=== PATIENT | female | born 1945 | race Caucasian/White ===

== ENCOUNTER 2018-06-06 05:54 | Day surgery (SDC) | payer OTHER ==
[2018-06-06] MEDS ORDERED: MIDAZOLAM 2 MG/2 ML VIAL IVP PRN (07:20)
[2018-06-06] MEDS ORDERED: ALTEPLASE 2 MG VIAL IVP PRN (07:20)
[2018-06-06] MEDS ORDERED: ONDANSETRON 4 MG/2 ML VIAL IVP ONE (07:20)
[2018-06-06] MEDS ORDERED: ceFAZolin 2 GM/DEXTROSE 100 ML IV ONE (07:20)
[2018-06-06] MEDS ORDERED: HEPARIN 10,000 UNIT/10 ML MDV (1,000 UNIT/ML) IVP PRN (07:20)
[2018-06-06] MEDS ORDERED: FLUMAZENIL 0.5 MG/5 ML MDV IVP PRN (07:20)
[2018-06-06] MEDS ORDERED: fentaNYL 100 MCG/2 ML INJ IVP PRN (07:20)
[2018-06-06] MEDS ORDERED: NS 1,000 ML IV ONE (07:20)
[2018-06-06] MEDS ORDERED: NALOXONE HCL 0.4 MG/ML INJ IVP PRN (07:20)
[2018-06-06] MEDS ORDERED: SODIUM TETRADECYL SULFATE 3% 2 ML VIAL IV ONE (07:58)
[2018-06-06] MEDS ORDERED: LIDO/EPI 1% **for epidural** 30 ML SDV ONE (07:58)
[2018-06-06] MEDS ORDERED: POLIDOCANOL 0.5% 2 ML AMP IV ONE (08:40)
--- NOTE | 2018-06-06 08:45 | PDGENHP ---
History & Physical Chief Complaint: BILATERAL LE VARICOSE VEINS History of Present Illness: PAIN AND SWELLING Pertinent Past, Social, Family History: FORMER SMOKER. Relevant Physical Exam: ROPEY VARICOSE VEINS Cardiorespiratory Assessment: RRR, CTA
--- NOTE | 2018-06-06 08:46 | PDPROPOC ---
Sedation Plan of Care Sedation Plan of Care: vital signs stable, mental status noted, patient educated of risks, benefits, alternatives, patient can tolerate sedation ASA Classification: ASA 2 Planned drugs: fentanyl, midazolam Mallampati Score: Class 2 Mallampati Reference Image: Patient passed 3-3-2 rule?: Yes
[2018-06-06] MEDS ORDERED: ONDANSETRON DISINTEGRATING 4 MG TAB PO PRN (10:58)
[2018-06-06] MEDS ORDERED: IBUPROFEN 200 MG TAB PO ONE (10:58)
[2018-06-06] MEDS ORDERED: ONDANSETRON 4 MG/2 ML VIAL IVP PRN (10:58)
[2018-06-06] MEDS ORDERED: NS 1,000 ML IV SCH (11:00)
--- NOTE | 2018-06-06 11:03 | PDRADPN ---
Radiology Procedure Note Date of Procedure: 06/06/18 Radiologist: Paloma Shields Anesthesia: IV Sedation Pre-op Diagnosis: RLE VARICOSE VEINS Post-op Diagnosis: SAME Indication: PAIN AND SWELLING Procedure: PHLEBECTOMY, SCLEROTHERAPY, LASER ABLATION Inf/Abcess present in the surg proc area at time of surgery?: No
[2018-06-06 14:06] VITALS: BP 122/73
== END 2018-06-06 14:00 | disposition home or self-care, planned readmission (81) ==
LOC: FIMAGING 05:54
PROVIDERS: ATTEND Radiology Diagnostic Radiology
PROC: B54DZZA Ultrasonography of Bilateral Lower Extremity Veins, Guidance (ICD-10-PCS; principal; 2018-06-06 11:06)
PROC: 065P3ZZ Destruction of Right Saphenous Vein, Percutaneous Approach (ICD-10-PCS; principal; 2018-06-06 11:06)
PROC: 06DQ3ZZ Extraction of Left Saphenous Vein, Percutaneous Approach (ICD-10-PCS; principal; 2018-06-06 11:06)
PROC: 3E033TZ Introduction of Destructive Agent into Peripheral Vein, Percutaneous Approach (ICD-10-PCS; principal; 2018-06-06 11:06)
PROC: 06DP3ZZ Extraction of Right Saphenous Vein, Percutaneous Approach (ICD-10-PCS; principal; 2018-06-06 11:06)
PROC: 065Q3ZZ Destruction of Left Saphenous Vein, Percutaneous Approach (ICD-10-PCS; principal; 2018-06-06 11:06)
DX: I83.813 Varicose veins of bilateral lower extremities with pain (principal); I83.893 Varicose veins of bilateral lower extremities with other complications; Z87.891 Personal history of nicotine dependence
CPT/HCPCS: J0690; J2250; J2310; J3010

== ENCOUNTER 2018-06-07 07:09 | Day surgery (SDC) | payer OTHER ==
[2018-06-07] MEDS ORDERED: ceFAZolin 2 GM/DEXTROSE 100 ML IV ONE (07:52)
[2018-06-07] MEDS ORDERED: fentaNYL 100 MCG/2 ML INJ IVP PRN (07:52)
[2018-06-07] MEDS ORDERED: MIDAZOLAM 2 MG/2 ML VIAL IVP PRN (07:52)
[2018-06-07] MEDS ORDERED: NALOXONE HCL 0.4 MG/ML INJ IVP PRN (07:52)
[2018-06-07] MEDS ORDERED: NS 1,000 ML IV ONE (07:52)
[2018-06-07] MEDS ORDERED: FLUMAZENIL 0.5 MG/5 ML MDV IVP PRN (07:52)
[2018-06-07] MEDS ORDERED: ONDANSETRON 4 MG/2 ML VIAL IVP ONE (07:52)
[2018-06-07] MEDS ORDERED: SODIUM TETRADECYL SULFATE 3% 2 ML VIAL IV ONE (08:38)
[2018-06-07] MEDS ORDERED: LIDO/EPI 1% **for epidural** 30 ML SDV ONE (08:38)
[2018-06-07] MEDS ORDERED: POLIDOCANOL 0.5% 2 ML AMP IV ONE (08:48)
[2018-06-07] MEDS ORDERED: ONDANSETRON 4 MG/2 ML VIAL IVP PRN (10:44)
[2018-06-07] MEDS ORDERED: IBUPROFEN 200 MG TAB PO ONE (10:44)
[2018-06-07] MEDS ORDERED: ONDANSETRON DISINTEGRATING 4 MG TAB PO PRN (10:44)
[2018-06-07] MEDS ORDERED: NS 1,000 ML IV SCH (10:45)
--- NOTE | 2018-06-07 10:45 | PDGENHP ---
History & Physical Chief Complaint: BILATERAL LE VARICOSE VEINS History of Present Illness: TREATED RT LEG YESTERDAY. LEFT LEG TODAY. Pertinent Past, Social, Family History: NON SMOKER Relevant Physical Exam: MILD BRUISING TO RLE. STOCKING IS TOO SHORT AND NOT TIGHT ENOUGH. DISCUSSED WITH PATIENT. Cardiorespiratory Assessment: RRR, CTA
--- NOTE | 2018-06-07 10:48 | PDRADPN ---
Radiology Procedure Note Date of Procedure: 06/07/18 Radiologist: Paloma Shields Anesthesia: IV Sedation Pre-op Diagnosis: LLE VARICOSE VEINS Post-op Diagnosis: SAME Indication: PAIN AND SWELLING Procedure: LASER ABLATION, PHLEBECTOMY, SCLEROTHERAPY Inf/Abcess present in the surg proc area at time of surgery?: No
[2018-06-07 14:11] VITALS: BP 137/86
== END 2018-06-07 14:13 | disposition home or self-care (01) ==
LOC: FIMAGING 07:09
PROVIDERS: ATTEND Radiology Diagnostic Radiology
DX: I83.812 Varicose veins of left lower extremity with pain (principal); I83.893 Varicose veins of bilateral lower extremities with other complications
CPT/HCPCS: J0690; J2250; J2310; J3010

== ENCOUNTER → 2018-08-21 | Outpatient (CLI) | payer OTHER | LOC: FIMAGING 15:37 ==